=== PATIENT | female | born 1955 | race Caucasian/White ===

== ENCOUNTER 2022-05-26 18:27 | Inpatient (IN) | payer MEDICARE ==
[~2022-05-26] VITALS: Ht 162.6 cm; Wt 74.8 kg
[2022-05-26 19:07] LABS: HEMOGLOBIN 12.2 gm/dl (12.3-15.3); RED BLOOD COUNT 3.96 M/UL (4.00-5.10); WHITE BLOOD COUNT 12.2 K/UL (4.5-11.0)
[2022-05-27] MEDS ORDERED: MELOXICAM15 MG PO (13:33)
[2022-05-27] MEDS ORDERED: WARFARIN SODIUM1 MG PO (13:34)
[2022-05-27] MEDS ORDERED: PREGABALIN25 MG PO (13:34)
[2022-05-27] MEDS ORDERED: HYDROXYZINE HCL25 MG PO (13:34)
[2022-05-27] MEDS ORDERED: DULOXETINE HCL60 MG PO (13:35)
[2022-05-27] MEDS ORDERED: WARFARIN SODIUM2 MG PO (13:35)
[2022-05-27] MEDS ORDERED: IRBESARTAN300 MG PO (13:36)
[2022-05-27] MEDS ORDERED: PROTONIX40 MG PO (13:37)
[2022-05-27] MEDS ORDERED: FEROSUL325 MG PO (13:37)
[2022-05-27] MEDS ORDERED: AMLODIPINE BESYL5 MG PO (13:37)
[2022-05-28 03:44] LABS: HEMOGLOBIN 12.4 gm/dl (12.3-15.3); RED BLOOD COUNT 4.07 M/UL (4.00-5.10); WHITE BLOOD COUNT 11.7 K/UL (4.5-11.0)
[2022-05-28 03:57] LABS: BUN/CREATININE RATIO 21 (0-10)
[2022-05-28 08:14] LABS: ESTIM. AVG GLU (EAG) 157 mg/dL (.); HEMOGLOBIN A1C 7.1 % (4.8-5.6)
[2022-05-28] MEDS ORDERED: ASPIRIN EC81 MG PO (11:19)
[2022-05-28] MEDS ORDERED: ATORVASTATIN CA20 MG PO (11:19)
[2022-05-28] MEDS ORDERED: JANTOVEN4 MG PO (11:24)
[2022-05-28] MEDS ORDERED: LOVENOX30 MG/0.3 SQ (11:24)
[2022-05-28 13:09] LABS: CHOLESTEROL, TOTAL 169 mg/dL (100-199); HDL CHOLESTEROL 44 mg/dL (>39); LDL CHOLESTEROL CALC 107 mg/dL (0-99); LDL/HDL RATIO 2.4 ratio (0.0-3.2); T. CHOL/HDL RATIO 3.8 ratio (0.0-4.4); TRIGLYCERIDES 99 mg/dL (0-149)
== END 2022-05-28 13:04 | disposition home or self-care (01) | DRG 66 ==
LOC: ER1 18:27 → CDU 21:38 → M/S 21:38
PROVIDERS: Emergency Medicine; Internal Medicine; ADMIT Internal Medicine
PROC: B24BZZZ Ultrasonography of Heart with Aorta (ICD-10-PCS; principal; 2022-05-27)
DX: I63.512 Cerebral infarction due to unspecified occlusion or stenosis of left middle cerebral artery (principal); Z20.822 Contact with and (suspected) exposure to COVID-19; I10 Essential (primary) hypertension; E78.5 Hyperlipidemia, unspecified; G43.909 Migraine, unspecified, not intractable, without status migrainosus; E11.9 Type 2 diabetes mellitus without complications; R47.01 Aphasia; R47.1 Dysarthria and anarthria; R29.701 NIHSS score 1; Z79.01 Long term (current) use of anticoagulants; Z95.2 Presence of prosthetic heart valve; Z87.11 Personal history of peptic ulcer disease; Z83.3 Family history of diabetes mellitus; F41.9 Anxiety disorder, unspecified
CPT/HCPCS: ECHO; 36415; 70450; 70496; 70498; 70551; 80053; 80061; 82550; 82553; 82962; 83036; 84439; 84443; 84484; 85025; 85610; 92507; 92610; 93005; 93306; 97162; 97530; 99285; J1650; Q9967

== ENCOUNTER 2022-05-29 13:58 | Emergency (ER) | payer MEDICARE ==
[~2022-05-29 13:58] MED LIST: AMLODIPINE BESYL5 MG PO; ASPIRIN EC81 MG PO; ATORVASTATIN CA20 MG PO; DULOXETINE HCL60 MG PO; FEROSUL325 MG PO; HYDROXYZINE HCL25 MG PO; IRBESARTAN300 MG PO; JANTOVEN4 MG PO; LOVENOX30 MG/0.3 SQ; MELOXICAM15 MG PO; PREGABALIN25 MG PO; PROTONIX40 MG PO; WARFARIN SODIUM1 MG PO; WARFARIN SODIUM2 MG PO
[2022-05-29 14:56] LABS: HEMOGLOBIN 12.7 gm/dl (12.3-15.3); RED BLOOD COUNT 4.11 M/UL (4.00-5.10); WHITE BLOOD COUNT 11.7 K/UL (4.5-11.0)
== END 2022-05-29 18:24 | disposition short-term general hospital (02) ==
LOC: ER1 13:58
PROVIDERS: Preventive Medicine Occupational Medicine
DX: R47.01 Aphasia (principal); I25.10 Atherosclerotic heart disease of native coronary artery without angina pectoris; I10 Essential (primary) hypertension; E11.9 Type 2 diabetes mellitus without complications; Z51.81 Encounter for therapeutic drug level monitoring
CPT/HCPCS: 70450; 71045; 80053; 82962; 83690; 85025; 85610; 86140; 93005; 99285

== ENCOUNTER → 2022-06-18 | Outpatient (CLI) | payer MEDICARE | LOC: US 14:20 | DX: Z95.2 Presence of prosthetic heart valve (principal) | CPT/HCPCS: 93922 ==

== ENCOUNTER → 2022-07-06 | Outpatient (CLI) | payer MEDICARE | LOC: EMI 12:58 | DX: M25.561 Pain in right knee (principal); M71.21 Synovial cyst of popliteal space [Baker], right knee | CPT/HCPCS: 73721 ==

== ENCOUNTER → 2022-07-06 | Outpatient (CLI) | payer MEDICARE | LOC: LAB 17:53 | DX: Z51.81 Encounter for therapeutic drug level monitoring (principal); Z79.899 Other long term (current) drug therapy | CPT/HCPCS: 85610 ==

== ENCOUNTER 2022-07-07 11:00 | Emergency (ER) | payer MEDICARE ==
[2022-07-07 12:30] LABS: HEMOGLOBIN 11.5 gm/dl (12.3-15.3); RED BLOOD COUNT 3.75 M/UL (4.00-5.10); WHITE BLOOD COUNT 10.5 K/UL (4.5-11.0)
== END 2022-07-07 17:46 | disposition home or self-care (01) ==
LOC: ER1 11:00
PROVIDERS: Emergency Medicine
DX: R79.1 Abnormal coagulation profile (principal); Z95.2 Presence of prosthetic heart valve; N18.9 Chronic kidney disease, unspecified; Z86.73 Personal history of transient ischemic attack (TIA), and cerebral infarction without residual deficits; E11.22 Type 2 diabetes mellitus with diabetic chronic kidney disease; I12.9 Hypertensive chronic kidney disease with stage 1 through stage 4 chronic kidney disease, or unspecified chronic kidney disease; Z79.82 Long term (current) use of aspirin; Z79.01 Long term (current) use of anticoagulants; Z51.81 Encounter for therapeutic drug level monitoring
CPT/HCPCS: 80053; 85025; 85610; 85730; 99283